=== PATIENT | male | born 1975 | race Caucasian/White ===

== ENCOUNTER 2022-05-18 21:28 | Emergency (ER) | payer BC, OTHER | END 2022-05-18 22:06 | disposition home or self-care (01) | LOC: FB.ED 21:28 | DX: T15.92XA Foreign body on external eye, part unspecified, left eye, initial encounter (principal); E66.9 Obesity, unspecified; Z68.41 Body mass index [BMI] 40.0-44.9, adult; Z86.16 Personal history of COVID-19; Z88.1 Allergy status to other antibiotic agents | CPT/HCPCS: 99283 ==

== ENCOUNTER 2023-01-14 07:31 | Day surgery (SDC) | payer OTHER ==
[~2023-01-14 07:31] MED LIST: Lactated Ringers 1,000 ML IV SCH; Sodium Chloride 0.9% 10 ML Syringe FLUSH PRN
[2023-01-14] MEDS ORDERED: Lidocaine 2% 5 ML SDV IV ONE (07:32)
[2023-01-14] MEDS ORDERED: Propofol 200 MG/20 ML SDV IV ONE (07:32)
[2023-01-14] MEDS ORDERED: Ketamine 500 mg/10 ML MDV IV ONE (07:32)
== END 2023-01-14 10:12 | disposition home or self-care (01) ==
LOC: FB.SDS 07:31
PROVIDERS: ATTEND Surgery
DX: Z12.11 Encounter for screening for malignant neoplasm of colon (principal); K57.30 Diverticulosis of large intestine without perforation or abscess without bleeding; Z79.899 Other long term (current) drug therapy; Z88.1 Allergy status to other antibiotic agents; Z90.49 Acquired absence of other specified parts of digestive tract
CPT/HCPCS: 00812; J2704; J3490; J7120

== ENCOUNTER 2024-07-09 08:05 | Emergency (ER) | payer OTHER ==
[2024-07-09] MEDS ORDERED: Naloxone 0.4 MG/ML SDV IVPUSH PRN (08:15)
[2024-07-09] MEDS: HYDROmorphone 2 MG/ML SDV IVPUSH ONE ×2 (08:18→11:52)
[2024-07-09] MEDS: Sodium Chloride 0.9% 10 ML Syringe FLUSH PRN (08:18)
[2024-07-09] MEDS: Sodium Chloride 0.9% 1,000 ML IV SCH (08:27)
[2024-07-09 08:40] LABS: BASOPHILS ABSOLUTE AUTO 0.1 x10-3/uL (0.0-0.3); BASOPHILS PERCENT AUTO 0.9 % (0.3-3.8); BLOOD UREA NITROGEN,BUN 20 mg/dL (7-18); BUN/CREATININE RATIO 18.2 (9-20); CALCIUM 9.4 mg/dL (8.6-10.2); CARBON DIOXIDE,CO2 27 mmol/L (21-32); CHLORIDE,CL 102 mmol/L (100-110); CREATININE 1.1 mg/dL (0.70-1.30); EOSINOPHILS ABSOLUTE AUTO 0.3 x10-3/uL (0.0-0.6); EOSINOPHILS PERCENT AUTO 2.2 % (0.1-6.8); EST CRCL DRUG DOSING (CG) 90.14 mL/min; ESTIMATED GFR 83 mL/min (>60); GLUCOSE RANDOM 129 mg/dL (80-116); HEMATOCRIT 44.6 % (38.3-50.1); HEMOGLOBIN 15.2 g/dL (12.9-17.7); LYMPHOCYTES ABSOLUTE AUTO 4.1 x10-3/uL (0.5-4.5); LYMPHOCYTES PERCENT AUTO 29.8 % (15.8-45.3); MEAN CORPUSCULAR HEMOGLOBIN 27.8 pg (27.0-33.3); MEAN CORPUSCULAR VOLUME 81.7 fL (80.8-98.7); MEAN PLATELET VOLUME 8.4 fL (6.7-11.0); MONOCYTES ABSOLUTE AUTO 1.4 x10-3/uL (0.0-1.2); MONOCYTES PERCENT AUTO 10.1 % (5.5-15.2); NEUTROPHILS ABSOLUTE AUTO 7.9 x10-3/uL (1.7-6.9); PLATELET COUNT,PLT 362 x10(3)uL (117-477); POTASSIUM,K 4.3 mmol/L (3.5-5.3); RED BLOOD CELL COUNT 5.46 x10(6)uL (3.90-5.90); RED CELL DISTRIBUTION WIDTH 13.8 % (12.4-15.0); SODIUM,NA 141 mmol/L (135-145); WHITE BLOOD CELL COUNT,WBC 13.9 x10-3/uL (3.2-10.1)
[2024-07-09 09:24] LABS: BILIRUBIN,URINE NEGATIVE (NEGATIVE); GLUCOSE,URINE NORMAL (NORMAL); KETONES,URINE NEGATIVE (NEGATIVE); LEUKOCYTE ESTERASE,URINE NEGATIVE (NEGATIVE); NITRITE,URINE NEGATIVE (NEGATIVE); OCCULT BLOOD,URINE LARGE (NEGATIVE); PROTEIN,URINE NEGATIVE (NEGATIVE); UROBILINOGEN,URINE NORMAL (NEGATIVE)
[2024-07-09 09:28] LABS: APPEARANCE,URINE CLEAR (CLEAR); BACTERIA,URINE RARE (NS); COLOR,URINE YELLOW (YELLOW); RBC,URINE 0-5 (0-5); SQUAMOUS EPITHELIAL CELLS,UR RARE (NS,R,O); WBC,URINE NOT SEEN (0-5)
== END 2024-07-09 10:25 | disposition home or self-care (01) ==
LOC: FB.ED 08:05
DX: N20.1 Calculus of ureter (principal); Z86.16 Personal history of COVID-19; E66.9 Obesity, unspecified; K21.9 Gastro-esophageal reflux disease without esophagitis; E78.00 Pure hypercholesterolemia, unspecified; Z90.49 Acquired absence of other specified parts of digestive tract; Z79.899 Other long term (current) drug therapy; Z88.8 Allergy status to other drugs, medicaments and biological substances; Z88.2 Allergy status to sulfonamides
CPT/HCPCS: 36415; 74176; 80048; 81001; 83605; 85025; 85379; 86140; 96374; 99284; J1171; J3490; J7030